=== PATIENT | male | born 1970 | race Caucasian/White ===

== ENCOUNTER 2020-08-28 18:11 | Emergency (ER) | payer SELFPAY ==
[~2020-08-28] VITALS: Ht 160 cm; Wt 65.8 kg
[2020-08-28 18:19] VITALS: Ht 160 cm; Wt 65.8 kg
[2020-08-28 21:05] VITALS: BP 169/93
== END 2020-08-28 21:05 | disposition home or self-care (01) ==
LOC: ED 18:11
DX: M79.672 Pain in left foot (principal); N18.6 End stage renal disease; Z98.890 Other specified postprocedural states
CPT/HCPCS: 82962